=== PATIENT | male | born 1995 | race Caucasian/White ===

== ENCOUNTER 2016-05-20 18:31 | Emergency (ER) | payer OTHER ==
[2016-05-20] MEDS ORDERED: DEXAMETHASONE 10 MG/ML VIAL PO STA (20:20)
[2016-05-20] MEDS ORDERED: CHERRY SYRUP 10 ML UDC PO ONE (20:20)
[2016-05-20] MEDS ORDERED: DEXAMETHASONE 10 MG/ML VIAL ONE (20:20)
[2016-05-20] MEDS ORDERED: AZITHROMYCIN 250 MG TABLET PO STA (20:37)
[2016-05-20] MEDS ORDERED: AZITHROMYCIN 250 MG TABLET PO ONE (20:39)
[2016-05-20] MEDS ORDERED: IBUPROFEN 800 MG TABLET PO STA (20:47)
[2016-05-20] MEDS ORDERED: IBUPROFEN 800 MG TABLET PO ONE (20:47)
== END 2016-05-20 20:50 | disposition home or self-care (01) ==
DX: J18.9 Pneumonia, unspecified organism (principal); L50.9 Urticaria, unspecified
CPT/HCPCS: 71020; 87070; 87430; 99283; 99284; A9270

== ENCOUNTER 2016-05-22 23:55 | Emergency (ER) | payer OTHER ==
[2016-05-23] MEDS ORDERED: diphenhydrAMINE 25 MG CAPSULE PO STA (02:29)
[2016-05-23] MEDS ORDERED: DEXAMETHASONE 10 MG/ML VIAL PO STA (02:29)
[2016-05-23] MEDS ORDERED: CHERRY SYRUP 10 ML UDC PO ONE (02:30)
[2016-05-23] MEDS ORDERED: DEXAMETHASONE 10 MG/ML VIAL ONE (02:30)
[2016-05-23] MEDS ORDERED: diphenhydrAMINE 25 MG CAPSULE PO ONE (02:31)
== END 2016-05-23 02:42 | disposition home or self-care (01) ==
DX: T78.40XA Allergy, unspecified, initial encounter (principal); J06.9 Acute upper respiratory infection, unspecified
CPT/HCPCS: 99282; 99283; A9270